=== PATIENT | female | born 1945 | race Caucasian/White ===

== ENCOUNTER 2016-08-25 17:33 | Emergency (ER) | payer OTHER, MEDICARE ==
[~2016-08-25] VITALS: Ht 172.7 cm; Wt 95.0 kg
[~2016-08-25 17:33] MED LIST: ASPI-496 PO; LEVO50TA5 PO; METF10002 PO; METO25TA35 PO; NITR0.4T8 SL; SIMV80TA3 PO
[2016-08-25 17:44] VITALS: BP 127/80
[2016-08-25] MEDS ORDERED: L.E.T SOLUTION TP ONE ×2 (18:28→18:30)
== END 2016-08-25 19:14 | disposition home or self-care (01) ==
LOC: ED 19:08
DX: S91.101A Unspecified open wound of right great toe without damage to nail, initial encounter (principal); I10 Essential (primary) hypertension; E11.9 Type 2 diabetes mellitus without complications; I25.2 Old myocardial infarction; Z90.710 Acquired absence of both cervix and uterus; Z87.891 Personal history of nicotine dependence; X58.XXXA Exposure to other specified factors, initial encounter; Y93.89 Activity, other specified; Y92.89 Other specified places as the place of occurrence of the external cause; Y99.8 Other external cause status
CPT/HCPCS: 99282

== ENCOUNTER 2016-11-18 20:03 | Emergency (ER) | payer OTHER, MEDICARE ==
[~2016-11-18] VITALS: Ht 172.7 cm; Wt 91.2 kg
[~2016-11-18 20:03] MED LIST changes: +NITR0.4T28 SL; -NITR0.4T8 SL
[2016-11-18 20:04] VITALS: BP 145/76
== END 2016-11-18 21:14 | disposition home or self-care (01) ==
LOC: ED 20:40
DX: H10.023 Other mucopurulent conjunctivitis, bilateral (principal); E11.9 Type 2 diabetes mellitus without complications; I10 Essential (primary) hypertension; Z91.041 Radiographic dye allergy status; Z88.1 Allergy status to other antibiotic agents; Z88.6 Allergy status to analgesic agent; Z88.8 Allergy status to other drugs, medicaments and biological substances
CPT/HCPCS: 99283

== ENCOUNTER 2017-10-04 05:45 | Emergency (ER) | payer OTHER, MEDICARE ==
[~2017-10-04] VITALS: Ht 172.7 cm; Wt 90.0 kg
[2017-10-04] MEDS ORDERED: KETOROLAC 30 MG/1 ML IM ONE (06:30)
[2017-10-04 06:36] LABS: BASOPHILS # (AUTO) 0.02 x10^3/uL (0-0.1); BASOPHILS % (AUTO) 0 % (0-1); EOSINOPHILS # (AUTO) 0.08 x10^3/uL (0-0.4); EOSINOPHILS % (AUTO) 1 % (1-7); LYMPHOCYTES # (AUTO) 1.67 x10^3/uL (1-3.4); LYMPHOCYTES % (AUTO) 16 % (22-44); MD NO; MEAN CORPUSCULAR HEMOGLOBIN 30.4 pg (27.0-34.8); MEAN CORPUSCULAR HGB CONC 33.2 g/dL (32.4-35.8); MEAN CORPUSCULAR VOLUME 91.7 fL (80-100); MEAN PLATELET VOLUME 8.5 fL (7.4-10.4); MONOCYTES # (AUTO) 0.46 x10^3/uL (0.2-0.8); MONOCYTES % (AUTO) 5 % (2-9); NEUTROPHILS # (AUTO) 7.97 x10^3/uL (1.8-6.8); NEUTROPHILS % (AUTO) 78 % (42-75); PLATELET COUNT 263 x10^3/uL (130-400); RED BLOOD COUNT 4.73 x10^6/uL (3.82-5.3)
[2017-10-04] MEDS ORDERED: KETOROLAC 30 MG/1 ML ONE (06:46)
[2017-10-04 06:48] LABS: ALANINE AMINOTRANSFERASE 54 U/L (12-78); ALBUMIN 3.7 g/dL (3.4-5.0); ANION GAP 13 mmol/L (5-15); CALCIUM 9.5 mg/dL (8.5-10.1); CHLORIDE 106 mmol/L (98-107); CREATININE 0.98 mg/dL (0.55-1.02)
[2017-10-04 06:50] LABS: ALKALINE PHOSPHATASE 79 U/L (45-117); BILIRUBIN,TOTAL 0.6 mg/dL (0.2-1.0); TOTAL PROTEIN 7.8 g/dL (6.4-8.2)
[2017-10-04 07:00] LABS: CULTURE INDICATED? YES; MICROSCOPIC INDICATED
[2017-10-04 07:05] VITALS: BP 147/68
== END 2017-10-04 07:42 | disposition home or self-care (01) ==
LOC: ED 07:35
DX: N13.30 Unspecified hydronephrosis (principal); N20.2 Calculus of kidney with calculus of ureter; K80.20 Calculus of gallbladder without cholecystitis without obstruction; I25.2 Old myocardial infarction; E11.9 Type 2 diabetes mellitus without complications; I10 Essential (primary) hypertension; Z87.891 Personal history of nicotine dependence
CPT/HCPCS: 36415; 74176; 80053; 81001; 83690; 85025; 87086; 96372; 99285; J1885

== ENCOUNTER → 2017-10-26 | Outpatient (CLI) | payer OTHER, MEDICARE ==
[~2017-10-26] MED LIST changes: +ALBU8.5H8 INH; +CINN500C2 PO; +LECI1200 PO; -SIMV80TA3 PO; +SIMV80TA7 PO; +TIOT18CA INH
[2017-10-26 09:29] LABS: MICROSCOPIC INDICATED
== END | disposition home or self-care (01) ==
LOC: STAR 08:12
PROVIDERS: ATTEND Urology
DX: N20.1 Calculus of ureter (principal)
CPT/HCPCS: 81001; 87086; 93005

== ENCOUNTER 2017-11-02 13:03 | Day surgery (SDC) | payer OTHER, MEDICARE ==
[~2017-11-02] VITALS: Ht 172.7 cm; Wt 87.0 kg
[2017-11-02] MEDS ORDERED: LACTATED RINGERS 1,000 ML IV SCH (13:35)
[2017-11-02 13:47] VITALS: BP 139/69
[2017-11-02] MEDS ORDERED: PROPOFOL 10 MG/ML, 20ML ONE (15:22)
[2017-11-02] MEDS ORDERED: ROCURONIUM 10 MG/ML,10ML ONE (15:22)
[2017-11-02] MEDS ORDERED: SUCCINYLCHOLINE 20 MG/ML, 10ML ONE (15:22)
[2017-11-02] MEDS ORDERED: CIPROFLOXACIN/PMX 400MG/200ML 200 ML IVPB ONE (15:22)
[2017-11-02] MEDS ORDERED: MIDAZOLAM 1 MG/ML, 2ML ONE (15:27)
[2017-11-02] MEDS ORDERED: MORPHINE SULFATE 4 MG/ML, 1ML ONE (16:39)
[2017-11-02] MEDS ORDERED: ACETAMINOPHEN 650 MG/20.3 ML UDC ONE (16:39)
[2017-11-02] MEDS ORDERED: ONDANSETRON 2MG/ML, 2ML ONE (16:47)
[2017-11-02] MEDS ORDERED: PROMETHAZINE 25 MG/ML, 1ML ONE (16:53)
[2017-11-02] MEDS ORDERED: MORPHINE SULFATE 4 MG/ML, 1ML IVPush PRN (17:00)
[2017-11-02] MEDS ORDERED: PROMETHAZINE 25 MG/ML, 1ML IV PRN (17:00)
[2017-11-02] MEDS ORDERED: ACETAMINOPHEN 325 MG TABLET PO PRN (17:00)
[2017-11-02] MEDS ORDERED: D5%-0.45% NACL 1,000 ML IV SCH (18:00)
[2017-11-02] MEDS ORDERED: MORPHINE SULFATE 4 MG/ML, 1ML IV PRN (18:45)
[2017-11-02] MEDS ORDERED: ONDANSETRON 2MG/ML, 2ML IV PRN (21:00)
== END 2017-11-02 20:05 | disposition home or self-care (01) ==
LOC: OUT 13:03 → 4NOR 17:13 → OUT 20:05
PROVIDERS: ATTEND Urology
DX: N20.0 Calculus of kidney (principal); J44.9 Chronic obstructive pulmonary disease, unspecified; E11.9 Type 2 diabetes mellitus without complications; I25.2 Old myocardial infarction; I10 Essential (primary) hypertension; Z72.89 Other problems related to lifestyle; Z87.891 Personal history of nicotine dependence; Z88.5 Allergy status to narcotic agent; Z88.8 Allergy status to other drugs, medicaments and biological substances; Z98.890 Other specified postprocedural states; Z79.899 Other long term (current) drug therapy; Z79.82 Long term (current) use of aspirin
CPT/HCPCS: 52356; 74018; 76000; 82962; C1726; C1758; C2617; J0330; J0744; J2250; J2550; J2704; J7120

== ENCOUNTER 2018-10-24 12:15 | Emergency (ER) | payer OTHER, MEDICARE ==
[~2018-10-24] VITALS: Ht 172.7 cm; Wt 87.4 kg
[2018-10-24 12:22] VITALS: BP 127/55
== END 2018-10-24 15:11 | disposition home or self-care (01) ==
LOC: ED 15:05
DX: S61.552A Open bite of left wrist, initial encounter (principal); S61.452A Open bite of left hand, initial encounter; I25.2 Old myocardial infarction; I10 Essential (primary) hypertension; E11.9 Type 2 diabetes mellitus without complications; W55.01XA Bitten by cat, initial encounter; Y93.89 Activity, other specified; Y92.009 Unspecified place in unspecified non-institutional (private) residence as the place of occurrence of the external cause; Y99.8 Other external cause status
CPT/HCPCS: 29125; 73130; 90471; 90715; 96365; 99283; J0295

== ENCOUNTER 2018-10-26 04:46 | Emergency (ER) | payer OTHER, MEDICARE ==
[~2018-10-26] VITALS: Ht 172.7 cm; Wt 86.2 kg
[2018-10-26 04:52] VITALS: BP 141/52
== END 2018-10-26 05:29 | disposition home or self-care (01) ==
LOC: ED 05:15
DX: S50.872A Other superficial bite of left forearm, initial encounter (principal); W55.01XA Bitten by cat, initial encounter; Y93.89 Activity, other specified; Y92.098 Other place in other non-institutional residence as the place of occurrence of the external cause; Y99.8 Other external cause status
CPT/HCPCS: 99281

== ENCOUNTER 2019-04-27 17:13 | Emergency (ER) | payer OTHER, MEDICARE ==
[~2019-04-27] VITALS: Ht 172.7 cm; Wt 86.5 kg
[~2019-04-27 17:13] MED LIST changes: +SIMV80TA18 PO; -SIMV80TA7 PO
--- NOTE | 2019-04-27 17:48 | NUR ---
PT'S CAT SCRATCHED HER LAST NIGHT RIGHT ARM WITH LIGHT STREAK NOTED GOING UP THE ARM
[2019-04-27] MEDS ORDERED: AMOXICILLIN/CLAV 875-125MG TABLET PO ONE (19:30)
[2019-04-27] MEDS ORDERED: AMOXICILLIN/CLAV 875-125MG TABLET ONE (19:35)
--- NOTE | 2019-04-27 19:40 | NUR ---
Pt offered Augmentin per MD order. Pt stated "Augmentin is too strong for me, it makes me sick".
[2019-04-27] MEDS ORDERED: ONDANSETRON ODT 8 MG ONE (19:47)
[2019-04-27] MEDS ORDERED: metroNIDAZOLE 500 MG TABLET ONE (19:47)
[2019-04-27] MEDS ORDERED: CIPROFLOXACIN 500 MG TABLET ONE (19:47)
[2019-04-27] MEDS ORDERED: CIPROFLOXACIN 500 MG TABLET PO ONE (20:00)
[2019-04-27] MEDS ORDERED: metroNIDAZOLE 500 MG TABLET PO ONE (20:00)
[2019-04-27] MEDS ORDERED: ONDANSETRON ODT 4 MG PO ONE (20:00)
[2019-04-27 20:04] VITALS: BP 141/70
== END 2019-04-27 20:07 | disposition home or self-care (01) ==
LOC: ED 19:47
DX: S60.571A Other superficial bite of hand of right hand, initial encounter (principal); L03.113 Cellulitis of right upper limb; E11.9 Type 2 diabetes mellitus without complications; I10 Essential (primary) hypertension; I25.2 Old myocardial infarction; Z90.710 Acquired absence of both cervix and uterus; W55.01XA Bitten by cat, initial encounter; Y93.89 Activity, other specified; Y92.89 Other specified places as the place of occurrence of the external cause; Y99.8 Other external cause status
CPT/HCPCS: 99284; Q0162

== ENCOUNTER → 2020-01-09 | Outpatient (CLI) | payer OTHER, MEDICARE | END | disposition home or self-care (01) | LOC: CVU 07:15 | PROVIDERS: ATTEND Internal Medicine | DX: I08.0 Rheumatic disorders of both mitral and aortic valves (principal); J96.11 Chronic respiratory failure with hypoxia | CPT/HCPCS: 93306; 93356 ==

== ENCOUNTER → 2020-01-17 | Outpatient (CLI) | payer OTHER, MEDICARE | END | disposition home or self-care (01) | LOC: CFH 07:04 | PROVIDERS: ATTEND Internal Medicine | DX: Z12.2 Encounter for screening for malignant neoplasm of respiratory organs (principal); F17.211 Nicotine dependence, cigarettes, in remission; I25.10 Atherosclerotic heart disease of native coronary artery without angina pectoris | CPT/HCPCS: G0297 ==

== ENCOUNTER 2020-08-07 21:45 | Emergency (ER) | payer OTHER, MEDICARE ==
[~2020-08-07 21:45] MED LIST changes: -LECI1200 PO; +[UNRECOGNIZED DRUG - CODE] PO
[2020-08-07 22:24] LABS: BASOPHILS % (AUTO) 1 % (0-1); EOSINOPHILS % (AUTO) 2 % (1-7); LYMPHOCYTES % (AUTO) 21 % (22-44); MEAN CORPUSCULAR HEMOGLOBIN 30.4 pg (27.0-34.8); MEAN CORPUSCULAR HGB CONC 33.5 g/dL (32.4-35.8); MEAN PLATELET VOLUME 8.1 fL (7.4-10.4); MONOCYTES % (AUTO) 14 % (2-9); NEUTROPHILS % (AUTO) 63 % (42-75); PLATELET COUNT 276 x10^3/uL (130-400); RED CELL DISTRIBUTION WIDTH 13.8 % (9.6-15.2)
[2020-08-07 22:34] LABS: ALANINE AMINOTRANSFERASE 28 U/L (12-78); ALBUMIN 3.5 g/dL (3.4-5.0); ANION GAP 7 mmol/L (5-15); CALCIUM 9.1 mg/dL (8.5-10.1); CHLORIDE 104 mmol/L (98-107); CREATININE 0.96 mg/dL (0.55-1.02)
[2020-08-07 22:35] LABS: MD NO
[2020-08-07 22:37] LABS: ALKALINE PHOSPHATASE 76 U/L (45-117); BILIRUBIN,TOTAL 0.7 mg/dL (0.2-1.0); TOTAL PROTEIN 7.7 g/dL (6.4-8.2)
[2020-08-08 00:46] LABS: MICROSCOPIC INDICATED
[2020-08-08 03:04] VITALS: BP 119/54
== END 2020-08-08 03:06 | disposition home or self-care (01) ==
LOC: ED 08-08 03:04
DX: R31.0 Gross hematuria (principal); N20.0 Calculus of kidney; I10 Essential (primary) hypertension; I25.2 Old myocardial infarction; E11.9 Type 2 diabetes mellitus without complications; E78.5 Hyperlipidemia, unspecified; J44.9 Chronic obstructive pulmonary disease, unspecified; Z87.891 Personal history of nicotine dependence
CPT/HCPCS: 36415; 74176; 80053; 81001; 85025; 87086; 99284

== ENCOUNTER → 2020-10-06 | Outpatient (CLI) | payer OTHER, MEDICARE ==
[~2020-10-06] MED LIST changes: +UMEC62.5 INH
[2020-10-06 08:24] LABS: MICROSCOPIC AUTO
== END | disposition home or self-care (01) ==
LOC: STAR 07:09
PROVIDERS: ATTEND Urology
DX: Z01.818 Encounter for other preprocedural examination (principal); N20.0 Calculus of kidney
CPT/HCPCS: 81001; 87086; 93005

== ENCOUNTER 2020-10-12 10:44 | Observation (INO) | payer OTHER, MEDICARE ==
[~2020-10-12] VITALS: Ht 172.7 cm; Wt 83.2 kg
[2020-10-12] MEDS ORDERED: CEFAZOLIN PMX 1GM/50ML 50 ML IV ONE (11:30)
[2020-10-12] MEDS ORDERED: SITA100T PO (11:32)
[2020-10-12] MEDS ORDERED: LIDOCAINE 1%, 20ML ONE (12:52)
[2020-10-12] MEDS ORDERED: MIDAZOLAM 1 MG/ML, 5ML ONE (12:54)
[2020-10-12] MEDS ORDERED: FENTANYL PF 100 MCG/2ML ONE (12:54)
[2020-10-12] MEDS ORDERED: FLUMAZENIL 0.1 MG/1 ML, 5ML ONE (12:54)
[2020-10-12] MEDS ORDERED: NALOXONE 1 MG/ML, 2ML ONE (12:55)
[2020-10-12] MEDS ORDERED: DIPHENHYDRAMINE 50 MG/ML, 1ML ONE (12:55)
[2020-10-12] MEDS ORDERED: methylPREDNISolone SOD SUCC 125 MG/2 ML ONE (12:55)
[2020-10-12] MEDS ORDERED: OMNIPAQUE 350 MG/ML, 50 ML BOTTLE ONE (14:07)
[2020-10-12] MEDS ORDERED: FENTANYL PF 250 MCG/5ML ONE (14:22)
[2020-10-12] MEDS ORDERED: CHLORHEXIDINE 15 ML UDC ONE (14:23)
[2020-10-12] MEDS ORDERED: CHLORHEXIDINE 15 ML UDC PO ONE (14:30)
[2020-10-12] MEDS ORDERED: hydrALAzine 20 MG/ML, 1ML IV PRN ×2 (14:30→15:00)
[2020-10-12] MEDS ORDERED: KETOROLAC 30 MG/1 ML IV PRN (14:30)
[2020-10-12] MEDS ORDERED: LACTATED RINGERS 1,000 ML IV SCH (14:30)
[2020-10-12] MEDS ORDERED: FENTANYL PF 100 MCG/2ML IV PRN ×2 (14:30→15:00)
[2020-10-12] MEDS ORDERED: OXYcodone 5 MG/5 ML ORAL.SOL UDC PO PRN ×2 (14:30→15:00)
[2020-10-12] MEDS ORDERED: PROMETHAZINE 25 MG/ML, 1ML IV PRN ×2 (14:30→15:00)
[2020-10-12] MEDS ORDERED: DIAZEPAM 5 MG/ML, 2ML IVPush PRN (14:30)
[2020-10-12] MEDS ORDERED: ALBUTEROL SULFATE 2.5 MG/3 ML NPPB PRN ×3 (14:30→18:00)
[2020-10-12] MEDS ORDERED: LABETALOL 5MG/ML, 20ML IV PRN ×2 (14:30→15:00)
[2020-10-12] MEDS ORDERED: MEPERIDINE/PF 25MG/0.5ML IVPush PRN (14:30)
[2020-10-12] MEDS ORDERED: ACETAMINOPHEN 325 MG TABLET PO PRN (14:30)
[2020-10-12] MEDS ORDERED: HYDROmorphone 2 MG/ML, 1ML IVPush PRN ×2 (14:30→15:00)
[2020-10-12] MEDS ORDERED: HALOPERIDOL 5 MG/ML IV PRN (15:00)
[2020-10-12] MEDS ORDERED: ONDANSETRON 2MG/ML, 2ML ONE (15:55)
[2020-10-12] MEDS ORDERED: DEXAMETHASONE 4 MG/ML, 1ML ONE (15:55)
[2020-10-12] MEDS ORDERED: SUCCINYLCHOLINE 20 MG/ML, 10ML ONE (15:55)
[2020-10-12] MEDS ORDERED: CEFAZOLIN 1,000 MG ONE (15:55)
[2020-10-12] MEDS ORDERED: PROPOFOL 10 MG/ML, 20ML ONE (15:55)
[2020-10-12] MEDS ORDERED: ROCURONIUM 10MG/ML,5ML ONE (15:55)
[2020-10-12] MEDS ORDERED: GLYCOPYRROLATE 0.2MG/1ML, 5ML ONE (15:55)
[2020-10-12] MEDS ORDERED: NEOSTIGMINE 1 MG/ML, 10ML ONE (15:55)
[2020-10-12] MEDS ORDERED: ACETAMINOPHEN 650 MG/20.3 ML UDC ONE (16:26)
[2020-10-12] MEDS ORDERED: OXYcodone 5 MG/5 ML ORAL.SOL UDC ONE (16:26)
[2020-10-12] MEDS ORDERED: OXYcodone/APAP 5/325MG TABLET PO PRN (16:30)
[2020-10-12] MEDS ORDERED: ONDANSETRON 2MG/ML, 2ML IV PRN (16:30)
[2020-10-12] MEDS: LACTATED RINGERS 1,000 ML IV SCH (16:48)
[2020-10-12 17:45] VITALS: BP 157/79
[2020-10-12] MEDS ORDERED: NITROGLYCERIN 0.4 MG BOTTLE (25 TABS) SL PRN (18:00)
[2020-10-12] MEDS: METOPROLOL TARTRATE 25 MG TAB PO SCH (18:08)
[2020-10-12 19:04] VITALS: BP 144/81
[2020-10-12] MEDS ORDERED: SIMVASTATIN 40 MG TABLET PO SCH (21:00)
[2020-10-12 23:23] VITALS: BP 126/68
[2020-10-13 01:53] VITALS: BP 122/69
[2020-10-13] MEDS ORDERED: LEVOTHYROXINE 50 MCG TABLET PO SCH (06:00)
[2020-10-13] MEDS: LACTATED RINGERS 1,000 ML IV SCH (06:20)
[2020-10-13] MEDS: METOPROLOL TARTRATE 25 MG TAB PO SCH (06:34)
[2020-10-13 07:43] VITALS: BP 115/67
[2020-10-13] MEDS ORDERED: metFORMIN 500 MG TABLET PO SCH (08:00)
[2020-10-13] MEDS ORDERED: [UNRECOGNIZED DRUG - OTHER] HOMEINH SCH (09:00)
[2020-10-13] MEDS ORDERED: UMECLIDINIUM BROMIDE HOMEINH SCH (09:00)
[2020-10-13 13:10] VITALS: BP 118/61
== END 2020-10-13 17:10 | disposition home or self-care (01) ==
LOC: OUT 10:44 → ORIP 16:36 → 4NE 17:30
PROVIDERS: ADMIT Urology; ATTEND Urology
DX: N20.0 Calculus of kidney (principal); I10 Essential (primary) hypertension; I25.10 Atherosclerotic heart disease of native coronary artery without angina pectoris; J44.9 Chronic obstructive pulmonary disease, unspecified; E11.9 Type 2 diabetes mellitus without complications; Z87.442 Personal history of urinary calculi; Z79.899 Other long term (current) drug therapy; Z79.82 Long term (current) use of aspirin; Z87.891 Personal history of nicotine dependence
CPT/HCPCS: 50081; 50433; 76942; 82360; 82962; 88300; 96360; 96361; C1751; C1769; C1894; C2617; C2625; G0378; J0690; J1100; J1200; J2250; J2405; J2704; J2710; J2930; J3010; J3490; J7120; Q9967; 74425; J0330; J2310